=== PATIENT | male | born 1985 | race Caucasian/White ===

== ENCOUNTER 2018-12-27 14:03 | Inpatient (IN) | payer MEDICAID ==
[~2018-12-27] VITALS: Ht 177.8 cm; Wt 66.0 kg
[2018-12-27 14:19] VITALS: Ht 177.8 cm; Wt 66.0 kg
[2018-12-27 15:55] LABS: BASOPHIL % 0.2 % (0-2); PLATELET COUNT 182 x10^3mcL (130-400)
[2018-12-27 15:58] LABS: RED CELL DISTRIBUTION WIDTH 15.7 % (11.5-14.5)
[2018-12-27 16:04] LABS: CALCIUM 9.1 mg/dL (8.5-10.1); CARBON DIOXIDE 28.4 mmol/L (21-32); CHLORIDE SERUM 96 mmol/L (98-107); GFR1 > 60 mL/min; GLUCOSE SERUM 103 mg/dL (74-106); POTASSIUM SERUM 3.9 mmol/L (3.5-5.1); SODIUM SERUM 136 mmol/L (136-145)
[2018-12-27 16:09] LABS: ALBUMIN 4.5 g/dL (3.4-5.0); ALKALINE PHOSPHATASE 109 U/L (46-116); ALT/SGPT 258 U/L (16-63); AST/SGOT 213 U/L (15-37); BILIRUBIN TOTAL 1.2 mg/dL (0.20-1.00); LIPASE 1148 IU/L (73-393)
[2018-12-27 16:59] LABS: UA SPECIFIC GRAVITY 1.025 (1.005-1.035); microscopic required? YES; urine erythrocyte TRACE (NEGATIVE)
[2018-12-27] MEDS ORDERED: TRAZODONE50 M1 PO (17:59)
[2018-12-27] MEDS ORDERED: LEXAPRO10 MG PO (18:00)
[2018-12-27 18:56] LABS: microscopic required? NO
[2018-12-27 19:11] LABS: CHOLESTEROL/HDL RATIO 2.5; MAGNESIUM 1.5 mg/dL (1.8-2.4); PHOSPHOROUS 3.9 mg/dL (2.5-4.9)
[2018-12-27 19:17] LABS: UA SPECIFIC GRAVITY >=1.030 (1.005-1.035); urine erythrocyte NEGATIVE (NEGATIVE)
[2018-12-27 19:19] VITALS: BP 124/95
[2018-12-27 19:19] LABS: FREE T4 0.92 ng/dL (0.76-1.46); FREE THYROXINE INDEX 1.8 ug/dL (1.4-4.5); T4(THYROXINE) 4.9 ug/dL (4.7-13.3)
[2018-12-27 19:20] LABS: T3 TOTAL 1.13 ng/mL
[2018-12-27 19:28] LABS: AMPHETAMINE QUAL UR NONE DETECTED (See below)
[2018-12-27 21:26] VITALS: BP 125/84
[2018-12-28 05:44] VITALS: BP 124/85
[2018-12-28 06:41] LABS: ALBUMIN 3.4 g/dL (3.4-5.0); ALKALINE PHOSPHATASE 91 U/L (46-116); ALT/SGPT 174 U/L (16-63); AST/SGOT 116 U/L (15-37); BILIRUBIN DIRECT 0.52 mg/dL (0.0-0.2); BILIRUBIN TOTAL 1.68 mg/dL (0.20-1.00); CALCIUM 8.5 mg/dL (8.5-10.1); CHLORIDE SERUM 102 mmol/L (98-107); CREATININE SERUM 0.9 mg/dL (0.7-1.3); GFR1 > 60 mL/min; GLUCOSE SERUM 75 mg/dL (74-106); LIPASE 853 IU/L (73-393); MAGNESIUM 1.6 mg/dL (1.8-2.4); PHOSPHOROUS 3.5 mg/dL (2.5-4.9); POTASSIUM SERUM 4.3 mmol/L (3.5-5.1); SODIUM SERUM 139 mmol/L (136-145); TOTAL PROTEIN, SERUM 6.3 g/dL (6.4-8.2)
[2018-12-28 06:44] LABS: BASOPHIL % 0.5 % (0-2); PLATELET COUNT 122 x10^3mcL (130-400); RED CELL DISTRIBUTION WIDTH 15.3 % (11.5-14.5)
[2018-12-28 06:46] LABS: AMYLASE 140 U/L (25-115)
[2018-12-28 09:32] VITALS: BP 124/79
[2018-12-28 13:02] VITALS: BP 132/84
[2018-12-28 17:39] VITALS: BP 124/84
[2018-12-28 21:19] VITALS: BP 122/87
[2018-12-29 04:55] VITALS: BP 108/67
[2018-12-29 06:08] LABS: BASOPHIL % 0.3 % (0-2)
[2018-12-29 06:19] LABS: CALCIUM 8.7 mg/dL (8.5-10.1); CARBON DIOXIDE 28.8 mmol/L (21-32); CHLORIDE SERUM 102 mmol/L (98-107); CREATININE SERUM 0.9 mg/dL (0.7-1.3); GFR1 > 60 mL/min; GLUCOSE SERUM 99 mg/dL (74-106); LIPASE 705 IU/L (73-393); POTASSIUM SERUM 3.9 mmol/L (3.5-5.1); SODIUM SERUM 137 mmol/L (136-145)
[2018-12-29 06:58] LABS: PLATELET COUNT 122 x10^3mcL (130-400); RED CELL DISTRIBUTION WIDTH 15.1 % (11.5-14.5)
[2018-12-29 10:07] VITALS: BP 115/80
[2018-12-29 12:57] VITALS: BP 115/80
[2018-12-29 14:29] VITALS: BP 120/77
[2018-12-29] MEDS ORDERED: ULTRAM50 MG PO (16:10)
[2018-12-29 16:17] VITALS: BP 112/79
== END 2018-12-29 16:45 | disposition home or self-care (01) | DRG 282 ==
LOC: ED 14:03 → DU 17:44 → MU 17:44 → DU 21:20
PROVIDERS: Emergency Medicine; Family Medicine; ADMIT Internal Medicine
DX: K85.20 Alcohol induced acute pancreatitis without necrosis or infection (principal); K65.9 Peritonitis, unspecified; F10.129 Alcohol abuse with intoxication, unspecified; E83.42 Hypomagnesemia; R74.0 Nonspecific elevation of levels of transaminase and lactic acid dehydrogenase [LDH]; E78.5 Hyperlipidemia, unspecified; F32.9 Major depressive disorder, single episode, unspecified; Z68.21 Body mass index [BMI] 21.0-21.9, adult
CPT/HCPCS: 83880; 84439; G0480; J1885; J2270; J2405; J3010; J3490; J7030; Q0092